=== PATIENT | female | born 1985 | race Hispanic/Latino ===

== ENCOUNTER 2022-01-30 05:34 | Emergency (ER) | payer BC ==
[2022-01-30 06:32] LABS: Basophils % (Auto) 0.6 % (0.0-1.8); Eosinophils # (Auto) 0.4 K/mm3 (0.0-0.4); Eosinophils % (Auto) 6.4 % (0.0-4.3); Hematocrit 35.1 % (30.3-42.9); Hemoglobin 12.1 gm/dl (10.1-14.3); Lymphocytes # (Auto) 2.6 K/mm3 (1.2-5.4); Lymphocytes % (Auto) 45.8 % (13.4-35.0); Mean Corpuscular HGB Conc 35 % (30-34); Mean Corpuscular Volume 79 fl (79-97); Monocytes # (Auto) 0.4 K/mm3 (0.0-0.8); Monocytes % (Auto) 6.2 % (0.0-7.3); Platelet Count 211 K/mm3 (140-440); Red Blood Count 4.43 M/mm3 (3.65-5.03); Red Cell Distribution Width 13.7 % (13.2-15.2)
[2022-01-30 06:59] LABS: Alanine Aminotransferase 39 units/L (7-56); Albumin 4.9 g/dL (3.9-5); BUN/Creatinine Ratio 21; Blood Urea Nitrogen 17 mg/dL (7-17); Calcium 9.7 mg/dL (8.4-10.2); Hemolysis Index 2
--- NOTE | 2022-01-30 10:41 | Vascular Lab Report ---
DUPLEX DOPPLER LOWER EXTREMITY VEINS, LEFT INDICATION / CLINICAL INFORMATION: SWELLING. TECHNIQUE: Duplex doppler imaging was performed through the veins of the left lower extremity using v enous compression and other maneuvers. COMPARISON: None available. FINDINGS: LEFT COMMON FEMORAL VEIN: Negative. LEFT FEMORAL VEIN: Negative. LEFT POPLITEAL VEIN: Negative. LEFT CALF VEINS: Negative. ADDITIONAL FINDINGS: None. IMPRESSION: 1. No sonographic evidence for DVT in the left lower extremity. Signer Name: Geovanni Amador MD Signed: 01/30/2022 10:36 AM Workstation Name: [employer]
--- NOTE | 2022-01-30 10:56 | Emergency Department Report ---
<SVETA PINA Kaz - Last Filed: 01/30/22 11:54> ED Lower Extremity HPI - General Chief Complaint: Extremity Problem,Nontraumatic Stated Complaint: LEG PAIN BACK OF CALF Time Seen by Provider: 01/30/22 09:27 Source: patient Mode of arrival: Ambulatory Limitations: No Limitations - History of Present Illness Initial Comments: 36 YO OBESE FEMALE COMES TO ER WITH LEFT CALF PAIN NO TRAUMA. OBESE NO HORMONES ACTIVE NO HX DVT NO CP NO SOB ON CHRONIC PAIN MANAGEMENT PROGRAM MD Complaint: other Improves With: nothing Worsens With: nothing - Related Data Allergies Allergy/AdvReac Type Severity Reaction Status Date / Time cefaclor [From Ceclor] Allergy Unknown Verified 01/30/22 05:53 zolpidem [From Ambien] Allergy Unknown Verified 01/30/22 05:53 ED Review of Systems Comment: All other systems reviewed and negative ED Past Medical Hx - Past Medical History Previous Medical History?: Yes Hx Hypertension: Yes Additional medical history: OBESE, A/C PELVIC PAIN IN PAIN MANAGEMENT; HYPOTHYROIDSIM, ANXIETY, ENDOMETRIOSIS - Surgical History Past Surgical History?: No - Social History Smoking Status: Unknown if ever smoked Substance Use Type: None ED Physical Exam - General Limitations: No Limitations General appearance: alert, in no apparent distress - Head Head exam: Present: atraumatic, normocephalic - Eye Eye exam: Present: normal appearance - ENT ENT exam: Present: mucous membranes moist - Neck Neck exam: Present: normal inspection - Respiratory Respiratory exam: Present: normal lung sounds bilaterally. Absent: respiratory distress - Cardiovascular Cardiovascular Exam: Present: regular rate, normal rhythm. Absent: systolic murmur, diastolic murmur, rubs, gallop - GI/Abdominal GI/Abdominal exam: Present: soft, normal bowel sounds - Extremities Exam Extremities exam: Present: normal inspection - Back Exam Back exam: Present: normal inspection - Neurological Exam Neurological exam: Present: alert, oriented X3 - Psychiatric Psychiatric exam: Present: normal affect, normal mood - Skin Skin exam: Present: warm, dry, intact, normal color. Absent: rash ED Lower Extremity MDM - Lab Data Result diagrams: 01/30/22 05:54 01/30/22 05:54 - Radiology Data Radiology results: report reviewed, image reviewed NO DVT - Medical Decision Making Lab Results 01/30/22 01/30/22 01/30/22 Range/Units 05:54 05:54 05:54 WBC 5.8 (4.5-11.0) K/mm3 RBC 4.43 (3.65-5.03) M/mm3 Hgb 12.1 (10.1-14.3) gm/dl Hct 35.1 (30.3-42.9) % MCV 79 (79-97) fl MCH 27 L (28-32) pg MCHC 35 H (30-34) % RDW 13.7 (13.2-15.2) % Plt Count 211 (140-440) K/mm3 Lymph % (Auto) 45.8 H (13.4-35.0) % [place] % (Auto) 6.2 (0.0-7.3) % Eos % (Auto) 6.4 H (0.0-4.3) % Baso % (Auto) 0.6 (0.0-1.8) % Lymph # (Auto) 2.6 (1.2-5.4) K/mm3 [place] # (Auto) 0.4 (0.0-0.8) K/mm3 Eos # (Auto) 0.4 (0.0-0.4) K/mm3 Baso # (Auto) 0.0 (0.0-0.1) K/mm3 Seg Neutrophils % 41.0 (40.0-70.0) % Seg Neutrophils # 2.4 (1.8-7.7) K/mm3 D-Dimer 180.93 (0-234) ng/mlDDU Sodium 139 (137-145) mmol/L Potassium 4.2 (3.6-5.0) mmol/L Chloride 100.9 (98-107) mmol/L Carbon Dioxide 25 (22-30) mmol/L Anion Gap 17 mmol/L BUN 17 (7-17) mg/dL Creatinine 0.8 (0.6-1.2) mg/dL Estimated GFR > 60 ml/min BUN/Creatinine Ratio 21 % Glucose 94 (65-100) mg/dL Calcium 9.7 (8.4-10.2) mg/dL Total Bilirubin 0.20 (0.1-1.2) mg/dL AST 23 (5-40) units/L ALT 39 (7-56) units/L Alkaline Phosphatase 86 (35-129) units/L Total Protein 7.1 (6.3-8.2) g/dL Albumin 4.9 (3.9-5) g/dL Albumin/Globulin Ratio 2.2 % Vital Signs 01/30/22 05:50 Temperature 98.5 F Pulse Rate 81 Respiratory 18 Rate Blood Pressure 141/95 O2 Sat by Pulse 100 Oximetry US NEG DVT LABS NOTED DC HOME WITH DC PLAN OF CARE INCLUDING DIET, MEDS, ACTIVITY AND FOLLOW UP PT VERBALIZES UNDERSTANDING OF PLAN OF CARE. - Differential Diagnosis RO DVT ED Disposition Clinical Impression: Calf pain Disposition: 01 HOME / SELF CARE / HOMELESS Is pt being admited?: No Does the pt Need Aspirin: No Condition: Stable Instructions: Muscle Cramps and Spasms, [id number] Additional Instructions: CONTINUE HOME PAIN MEDS WARM COMPRESSES FOLLOW UP WITH PCP ULTRASOUND AND LABS ALL NORMAL Referrals: ALESIA PHOENIX MD [Staff Physician] - 3-5 Days Forms: Work/School Release Form(ED) Time of Disposition: 10:55 <ABEBA CAMILO - Last Filed: 02/01/22 00:42> ED Review of Systems ROS: Stated complaint: LEG PAIN BACK OF CALF Other details as noted in HPI ED Course Vital Signs 01/30/22 01/30/22 05:50 12:04 Temperature 98.5 F 98.2 F Pulse Rate 81 90 Respiratory 18 20 Rate Blood Pressure 141/95 Blood Pressure 145/79 [Left] O2 Sat by Pulse 100 99 Oximetry ED Lower Extremity MDM - Lab Data Result diagrams: 01/30/22 05:54 01/30/22 05:54 - Medical Decision Making This patient was seen independently by the midlevel provider. I was available for consult however I was not involved in the decision making or the disposition of this patient. Abeba Camilo Critical care attestation.: If time is entered above; I have spent that time in minutes in the direct care of this critically ill patient, excluding procedure time.
[2022-01-30 12:05] VITALS: BP 145/79
== END 2022-01-30 12:03 | disposition home or self-care (01) ==
LOC: ED 05:34
DX: M79.605 Pain in left leg (principal); Z79.899 Other long term (current) drug therapy
CPT/HCPCS: 36415; 80053; 85025; 85379; 99284